=== PATIENT | male | born 1950 | race Caucasian/White ===

== ENCOUNTER → 2017-08-03 | Outpatient (CLI) | payer BC, OTHER | LOC: PET 01:17 | DX: C34.90 Malignant neoplasm of unspecified part of unspecified bronchus or lung (principal) ==

== ENCOUNTER → 2018-03-04 | Outpatient (CLI) | payer OTHER, MEDICARE ==
--- NOTE | ~2018-03-04 | P ---
[facility] [place] [address] PROCEDURE REPORT Name: LIVIA KAY Room #: REG [facility].#: [id number] Admission: 03/04/18 Attend Phys: Mehrdad Orellana MD Discharge: Date of : 46 Report #: [id number] THIS REPORT FOR: //name// CC: Cynthia Michel MD DATE OF SERVICE: 03/04/2018 PROCEDURE: Fiberoptic bronchoscopy with bronchioalveolar lavage of the right upper lobe. INDICATION: Pulmonary infiltrates, is on radiation treatment, worrisome for opportunistic infection given recent high dose steroids versus pneumonitis. PROCEDURE NOTATION: After discussing risks and benefits of the planned procedure, the patient desired to proceed. After obtaining informed consent, he was brought to [employer] [facility] where he was placed on continuous cardiopulmonary monitoring and supplemental oxygen. He was then given 4% lidocaine nebulized to anesthetize the upper respiratory tract. Once accomplished, he received conscious sedation. Total of 2 mg of Versed and 25 mcg of fentanyl were titrated during the procedure to provide adequate sedation. Once complete, bronchoscope was passed through an oral biteblock until vocal cords were visualized. Vocal cords moved appropriately both before and after procedure, 1% lidocaine was instilled in the vocal cords to provide topical anesthesia. Bronchoscope was then passed into the trachea, 1% lidocaine was instilled in the tracheobronchial tree bilaterally for topical anesthesia. Once complete, airways were surveyed. FINDINGS: Mainstem, lobar, segmental and subsegmental bronchi were all explored and appeared patent with no significant anatomic disease or variation. There was some diffuse erythema noted. Bronchoscope was then wedged into the right upper lobe where bronchioalveolar lavage was performed. Some cloudy lavage return was noted. The patient tolerated well. No noted complications. IMPRESSION: Pulmonary infiltrates as described above, status post bronchoscopy, bronchioalveolar lavage. [facility] [address] [place] [address] PROCEDURE REPORT Name: LIVIA KAY [facility] Room #: [facility]#: [id number] Admission: 03/04/18 Attend Phys: Mehrdad Orellana MD Discharge: Date of : 46 Report #: [id number] PLAN: Await microbiologic and cytologic tests. <ELECTRONICALLY SIGNED> By: Mehrdad Orellana MD 03/16/18 1029 [id number] Mehrdad Orellana MD /nt
== END | disposition home or self-care (01) ==
LOC: CATH 03-01 13:23
DX: J98.09 Other diseases of bronchus, not elsewhere classified (principal); R91.8 Other nonspecific abnormal finding of lung field; E11.9 Type 2 diabetes mellitus without complications; Z85.118 Personal history of other malignant neoplasm of bronchus and lung; Z96.651 Presence of right artificial knee joint; Z87.891 Personal history of nicotine dependence; Z79.899 Other long term (current) drug therapy; Z79.82 Long term (current) use of aspirin

== ENCOUNTER → 2018-03-05 | Outpatient (CLI) | payer OTHER, MEDICARE ==
--- NOTE | ~2018-03-05 | 2DMMODE ---
[facility] [place] [address] 2 D/M-MODE ECHOCARDIOGRAM Name: LIVIA KAY Room #: REG [facility]#: [id number] Admission: 03/05/18 Attend Phys: Mehrdad Orellana Discharge: Date of : 46 Date of Service: 03/05/18 0950 Report #: [id number] THIS REPORT FOR: //name// APPROVED REPORT Study performed: 03/05/2018 09:10:46 EXAM: Comprehensive 2D, Doppler, and color-flow Echocardiogram Patient Location: Out-Patient Status: routine BSA: 2.37 HR: 55 bpm BP: 130/84 mmHg Rhythm: NSR/Arrhythmia Other Information Study Quality: Adequate Indications Dyspnea. Hx: DM 2D Dimensions RVDd: 39.76 mm LVEF(%): 58.29 (>50%) IVSd: 9.27 (7-11mm) LVOT Diam: 22.32 (18-24mm) LVDd: 55.25 mm PWd: 9.96 (7-11mm) Ascending Ao: 36.52 (22-36mm) LVDs: 38.04 (25-40mm) Aortic Root: 39.92 mm Hughes's LVEF: 58.29 % Volumes Left Atrial Volume (Systole) Single Plane 4CH: 46.46 mL Single Plane 2CH: 46.06 mL LA ESV Index: 20.00 mL/m2 Aortic Valve AoV Peak Hans.: 1.29 m/s AO Peak Gr.: 6.68 mmHg LVOT Max P.19 mmHg LVOT Max V: 0.89 m/s DARBY Vmax: 2.70 cm2 Mitral Valve E/A Ratio: 0.9 MV Decel. Time: 197.27 ms [facility] [place] [address] [place] [address] 2 D/M-MODE ECHOCARDIOGRAM Name: [facility] #: REG [facility]#: [id number] Admission: 03/05/18 Attend Phys: Mehrdad Orellana Discharge: Date of : 46 Date of Service: 03/05/18 0950 Report #: [id number] E Max Hans.: 0.76 m/s MV A Hans.: 0.83 m/s MV PHT: 57.21 ms IVRT: 92.27 ms Pulmonary Valve PV Peak Hans.: 1.06 m/s PV Peak Gr.: 4.47 mmHg Pulmonary Vein P Vein S: 0.47 m/s P Vein A: 0.34 m/s P Vein D: 0.46 m/s P Vein A Dur.: 179.9 msec P Vein S/D Ratio: 1.02 Tricuspid Valve TR Peak Hans.: 2.50 m/s RAP Estimate: 5.00 mmHg TR Peak Gr.: 25.10 mmHg PA Pressure: 30.00 mmHg Left Ventricle The left ventricle is normal size. There is normal LV segmental wall motion. There is normal left ventricular wall thickness. Left ventricular systolic function is normal. LVEF is 50%. Mild diastolic dysfunction is present (impaired relaxation pattern). Right Ventricle The right ventricle is normal size. The right ventricular systolic function is normal. Atria The left atrium size is normal. The right atrium size is normal. Aortic Valve The aortic valve is normal in structure. No aortic regurgitation is present. There is no aortic valvular stenosis. Mitral Valve The mitral valve is normal in structure. Trace to mild mitral regurgitation. No evidence of mitral valve stenosis. Tricuspid Valve The tricuspid valve is normal in structure. Trace to mild tricuspid regurgitation. Estimated PAP is 30mmHg. Pulmonic Valve The pulmonary valve is normal in structure. Trace pulmonic [facility] [address] [place] [address] 2 D/M-MODE ECHOCARDIOGRAM Name: [facility]IVIA KAY [facility] Room #: REG [facility]#: [id number] Admission: 03/05/18 Attend Phys: Mehrdad Orellana Discharge: Date of : 46 Date of Service: 03/05/18 0950 Report #: [id number] regurgitation. Great Vessels Aortic root is mildly dilated at 4.0cm. Ascending aorta measures at the upper limits of normal. IVC is normal in size and collapses >50% with inspiration. Pericardium There is no pericardial effusion. <Conclusion> Left ventricular systolic function is normal. There is normal LV segmental wall motion. LVEF 50%. The aortic valve is normal in structure. No aortic regurgitation or stenosis The mitral valve is normal in structure. Trace to mild mitral regurgitation. Trace to mild tricuspid regurgitation. Estimated pulmonary artery pressure of 30mmHg. There is no pericardial effusion. <ELECTRONICALLY SIGNED> By: Christiano Mejia MD, [facility] 03/05/1850 9 9 Christiano Mejia MD, FACC /INF
== END | disposition home or self-care (01) ==
LOC: CV 08:59
DX: I08.1 Rheumatic disorders of both mitral and tricuspid valves (principal); E11.9 Type 2 diabetes mellitus without complications

== ENCOUNTER → 2019-10-09 | Outpatient (CLI) | payer OTHER, MEDICARE | LOC: ULTRA 09:57 | DX: R53.81 Other malaise (principal); Z86.711 Personal history of pulmonary embolism ==

== ENCOUNTER → 2021-04-06 | Outpatient (CLI) | payer OTHER | LOC: RAD 14:08 | PROVIDERS: ATTEND Internal Medicine | DX: J84.9 Interstitial pulmonary disease, unspecified (principal); R06.00 Dyspnea, unspecified ==